=== PATIENT | female | born 1950 | race Caucasian/White ===

== ENCOUNTER 2022-01-29 23:58 | Inpatient (IN) | payer MEDICARE, SELFPAY ==
[2022-01-29 23:59] VITALS: BP 104/61; PULSE 97; RESP 15; TEMP 36.6; O2SAT 98
--- NOTE | 2022-01-30 00:18 | CT_ITS ---
STUDY: CT ABDOMEN AND PELVIS WITH CONTRAST REASON FOR EXAM: Female, 71 years old. diffuse pain, n/v RADIATION DOSAGE (If Supplied By Facility): CTDIvol = ( 16.25 ) mGy, DLP = ( 446.00 ) mGycm TECHNIQUE: Transaxial images were obtained from the dome of the diaphragm to the symphysis pubis without oral contrast. IV 100mL Isovue-300 was administered. Sagittal and coronal images were reconstructed. Individualized dose optimization techniques were used for this CT. COMPARISON: None. LIMITATIONS: None. LOWER CHEST: Normal. LIVER: The liver is diffusely hypoattenuating, suggestive of hepatic steatosis. GALLBLADDER/BILE DUCTS: Normal. PANCREAS: Normal. SPLEEN: Normal. ADRENAL GLANDS: Normal. KIDNEYS/URETERS/BLADDER: Cystic changes in the left kidney, too small to characterize. No hydroureteronephrosis or radiopaque nephrolithiasis.. RETROPERITONEUM/AORTA: Normal. BOWEL/MESENTERY: Severe wall thickening in the sigmoid colon with pericolonic inflammatory changes and sigmoid diverticulosis with pericolonic fluid and gas collection measuring 2.5 cm. APPENDIX: Identified and normal. PERITONEUM: Normal. REPRODUCTIVE ORGANS: Status post hysterectomy. BONES/SOFT TISSUES: No acute abnormality. OTHER: None. CT/Abdomen/Pelvis W IV Cont ONLY IMPRESSION: Severe sigmoid colonic wall thickening and pericolonic 2.5 cm fluid and gas collection, findings suspicious for perforated acute diverticulitis with peridiverticular abscess. Following clinical improvement colonoscopy is recommended to exclude underlying malignancy. Electronically Signed: Yamil Torres MD at 2:02 EDT ,
--- NOTE | 2022-01-30 00:19 | EDS_ITS ---
HPI HPI - GI History of Present Illness Chief Complaint: Abd Pain Informant: patient and family Limited: dementia Abdominal Pain/Flank Pain Onset: Weeks (2-3) Context: Gradual Onset Timing: Intermittent Quality: Aching Location: Diffuse Current Severity: Moderate Maximum Severity: Moderate Worsened by: Food Relieved by: Nothing Nausea/Vomiting/Emesis GI Symptom: Positive for Nausea and Vomiting Onset: Today Quality: Positive for Nonbilious; Negative for Blood streaks Severity: Moderate (Trouble keeping anything down) Diarrhea/Melena/Hematochezia GI Symptom: Negative for Diarrhea, Melena and Hematochezia Associated Symptoms Associated Symptoms: Negative for Dysuria, Frequency and Hematuria Narrative Narrative: Patient has been having weeks of intermittent abdominal discomfort after eating, today is more persistent and she has been vomiting all day and trouble keeping anything down, weak and lethargic, she has Alzheimer's dementia, so most of the history of recent events comes from family. The patient does state that she has abdominal discomfort right now, she states that hurts across her abdomen and points to the periumbilical level. Denies any back or chest discomfort or trouble breathing. No known falls or episodes of syncope recently. [facility] Medical History (Updated 01/30/22 @ 02:[address] Roberto Baird MD) Alzheimer's dementia Allergy/AdvReac Type Severity Reaction Status Date / Time No Known Allergies Allergy Verified 01/30/22 00:04 Surgical History (Updated 01/30/22 @ 02:[address] Roberto Baird MD) H/O: hysterectomy Social History Smoking Status: Never smoker ROS ROS ED Review of Systems ROS Unobtainable: due to mental condition Constitutional Constitutional ED: Denies chills or fever(s) Eyes Eyes: Denies change in vision or diplopia ENT ENT ED: Denies sore throat Cardiovascular Cardiovascular: Denies chest pain or palpitations Respiratory/Chest Respiratory/Chest: Denies cough or dyspnea Gastrointestinal Gastrointestinal: Reports abdominal pain, nausea and vomiting; Denies diarrhea Genitourinary Genitourinary ED: Denies dysuria or hematuria Musculoskeletal Musculoskeletal: Denies back pain or neck pain Integumentary Denies abscess or rash Neurologic Neurologic: Denies headache(s), paresthesias or weakness Psychiatric Psychiatric: Denies suicidal thoughts EXAM Physical Exam Const Vital Signs: 01/29/22 23:59 Temperature 97.9 F Temperature Source Temporal Pulse Rate 97 Respiratory Rate 15 Blood Pressure 104/61 Blood Pressure Mean 75 Pulse Ox 98 Oxygen Delivery Method Room Air Positive well nourished and well developed General Appearance ED: well developed and NAD HEENT Reports moist mucous membranes normocephalic and atraumatic Eyes PERRL and EOMs intact bilaterally Neck full ROM and supple Resp normal respiratory effort and clear to auscultation bilaterally Cardio regular rate, regular rhythm and no murmurs GI non-distended GI Narrative: Diffuse tenderness. No guarding or rebound tenderness. No palpable masses or pulsatile mass. Auscultation: hypoactive bowel sounds Palpation: soft Back/Spine no CVA tenderness General Back: other FROM Extremity normal to inspection General Extremety ED: Negative for edema, pulses abnormal or tenderness General Extremity: Negative for edema or pulses abnormal Neuro CN's II-XII intact bilaterally and no sensory deficits noted Neuro Narrative: Keenly alert, oriented to person and place but not time Sensorium / Orientation: awake and alert Motor Exam: strength 5/5 throughout Skin no rashes or lesions noted and no wounds MDM MDM MDM Narrative Medical decision making narrative: Labs were obtained and noted, we did start potassium replacement in the ED. CT of her abdomen/pelvis was obtained and the results were noted, severe sigmoid diverticulitis with an associated 2.5 mm diverticular abscess/perforation. Discussed with surgery Dr. Morales, he will see the patient early in the morning and recommends IV antibiotics and hospitalist admission at this time. Patient is doing well after morphine and prophylactic Zofran does not require any other medications right now. She does not have a surgical abdomen clinically. Lab Data Attestation: I reviewed the patient's lab results. Labs: Laboratory Results - last 24 hr 01/30/22 01/30/22 00:20 00:20 WBC 14.6 H RBC 4.83 Hgb 13.6 Hct 40.1 MCV 83.0 MCH 28.2 MCHC 33.9 RDW Std Deviation 45.2 H RDW Coeff of Jessica 14.9 H Plt Count 536 H MPV 9.2 Immature Gran % (Auto) 0.900 Neut % (Auto) 90.5 H Lymph % (Auto) 4.9 L [place] % (Auto) 3.6 Eos % (Auto) 0.0 Baso % (Auto) 0.1 Absolute Neuts (auto) 13.2 H Absolute Lymphs (auto) 0.72 L Nucleated RBC % 0 Sodium 139 Potassium 2.8 L Chloride 101 Carbon Dioxide 26.0 Anion Gap 12 BUN 15 Creatinine 0.95 Estim Creat Clear Calc 48.03 Est GFR (MDRD) Af Amer 75 Est GFR (MDRD) Non-Af 62 BUN/Creatinine Ratio 15.7 Glucose 173 H Calcium 8.3 L Total Bilirubin 0.50 AST 29 ALT 21 Alkaline Phosphatase 157 H Total Protein 6.2 L Albumin 1.8 L Globulin 4.4 H Albumin/Globulin Ratio 0.4 L Lipase 544 H Radiography Diagnostic Testing: Clinical Impression(s) from Imaging Studies Abdomen/Pelvis CT 01/30/22 00:18 IMPRESSION: Severe sigmoid colonic wall thickening and pericolonic 2.5 cm fluid and gas collection, findings suspicious for perforated acute diverticulitis with peridiverticular abscess. Following clinical improvement colonoscopy is recommended to exclude underlying malignancy. Electronically Signed: Yamil Torres MD at 2:02 EDT , Discharge Plan Dx/Rx/DC Orders Clinical Impression: Abscess of sigmoid colon due to diverticulitis, Hypokalemia due to excessive gastrointestinal loss of potassium Disposition Disposition: [facility]
[2022-01-30 00:26] LABS: Absolute Lymphocyte Count 0.72 X10^3/uL (0.83-4.51); Absolute Neutrophil Count 13.2 X10^3/uL (2.0-7.7); Basophil# 0.02 X10^3/uL; Basophil% 0.1 % (0-1); Hematocrit 40.1 % (37-47); Hemoglobin 13.6 g/dL (12.0-15.0); Lymphocyte # 0.72 X10^3/ul (0.83-4.51); Lymphocyte % 4.9 % (19-41); Mean Corp Hgb Conc 33.9 g/dL (32-36); Mean Corpuscular Hgb 28.2 pg (27.0-32.0); Mean Platelet Vol. 9.2 fl (6.2-12.0); Monocyte# 0.53 X10^3/uL; Monocyte% 3.6 % (0-10); NRBC Flagged by Analyzer 0 % (0-5); Neutrophil # 13.23 X10^3/uL (2.7-7.7); Neutrophil % 90.5 % (47-70); Platelet Count 536 K/mm3 (150-450); RBC Distribution Width CV 14.9 % (11.6-14.6); RBC Distribution Width SD 45.2 fl (35.1-43.9); Red Blood Count 4.83 M/mm3 (4.2-5.4); White Blood Count 14.6 K/mm3 (4.4-11.0)
[2022-01-30] MEDS: Morphine 2 MG/ML Syringe IV ×3 (00:32→22:35)
[2022-01-30] MEDS: Ondansetron 4 MG/2 ML Vial IV ×2 (00:33→13:21)
[2022-01-30] MEDS: 0.9% Normal Saline 1,000 ML 250 ML IV (00:39)
[2022-01-30 00:43] LABS: ALB/GLOB Ratio 0.4 RATIO (0.9-2.4); AST(SGOT) 29 U/L (15-37); Alanine Aminotransfer ALT/SGPT 21 U/L (13-56); Albumin, Serum 1.8 g/dL (3.2-5.0); Alkaline Phosphatase 157 U/L (45-117); Anion Gap 12 (5-15); BUN 15 mg/dL (7-18); BUN/Creat Ratio 15.7 RATIO (10-20); Calcium,Total 8.3 mg/dL (8.5-10.1); Chloride 101 mmol/L (98-107); Creatinine, Serum 0.95 mg/dL (0.55-1.02); EST Glomerular Filtration Rate 62 mL/min (>60); Est Glom Filt Rate - Afr Amer 75 mL/min (>60); Estimated Creatinine Clearance 48.03 ml/min; Globulin 4.4 g/dL (2.2-4.2); Glucose 173 mg/dL (74-106); Lipase 544 U/L (73-393); Potassium 2.8 mmol/L (3.5-5.1); Protein, Total 6.2 g/dL (6.4-8.2); Sodium Level 139 mmol/L (136-145)
[2022-01-30] MEDS: Potassium Chloride 10mEq/100mL 10 MEQ/100 ML IV.SOLN. 100 MEQ IV BOLUS ×8 (02:01→21:28)
--- NOTE | 2022-01-30 03:03 | PCM.HP.STD ---
HPI - General General Date of Admission: 01/30/22 HPI Narrative DAVIDA PINEDA, is a 71 F with a significant history of Alzheimer dementia who presents to the emergency department with abdominal pain. Her abdominal pain has been going on for about 2 months. However in the last 2 days or so her abdominal pain progressively worsened. Her abdominal pain is located in the lower part of her abdomen. Her abdominal pain is severe. Of note history is taken from patient daughters who were at the bedside. Patient has also dementia and is on able to provide characteristics such radiation, aggravation and ameliorating factors. Also in the past couple of days patient has been having nausea and vomiting. Reportedly she is unable to keep anything down. Reportedly patient has been weak. Patient has not had any fever. Reportedly patient has had some chills. [facility] Medical History Alzheimer's dementia Home Medications donepezil 10 mg DAILY 01/30/22 [History Last Taken Unknown] memantine 5 mg DAILY 01/30/22 [History Last Taken Unknown] paroxetine HCl 20 mg PO DAILY 01/30/22 [History Last Taken Unknown] potassium chloride 20 meq PO DAILY 01/30/22 [History Last Taken Unknown] quetiapine 25 mg DAILY 01/30/22 [History Last Taken Unknown] Allergy/AdvReac Type Severity Reaction Status Date / Time No Known Allergies Allergy Verified 01/30/22 00:04 Family History Other Diabetes Hypertension Lung cancer Surgical History H/O section H/O: hysterectomy Social History Smoking Status: Never smoker ROS ROS Narrative Constitutional: Patient has chills. Patient has anorexia.-Resting the patient has lost some weight in the past 2 months. Her family estimates that her weight loss may be about 10 pounds. Eyes: Denies blurry vision, change in eye color, change in vision, discharge from eye(s), double vision, erythema, eye pain, loss of vision or other HEENT: Denies abnormal hearing, dysphagia, ear pain, epistaxis, headache(s), hearing loss, nasal congestion, nasal discharge, post nasal drip, sinus pressure, sore throat or other Cardiovascular: Denies chest pain or palpitations. Denies dyspnea on exertion, orthopnea and paroxysmal nocturnal dyspnea Respiratory/Chest: Denies cough, excessive phlegm production, shortness of breath with exertion and wheezing Gastrointestinal: Reports abdominal pain, nausea and vomiting. Reports constipation. Genitourinary: Denies burning urination, difficulty urinating, dysuria, hematuria, nocturia, urinary frequency, urinary hesitancy, urinary incontinence, urinary urgency or other Musculoskeletal: Denies arthralgias, back pain, joint pain, joint stiffness, joint swelling, myalgias, neck pain or other Neurologic: Denies abnormal gait, abnormal speech, disequilibrium, dizziness, focal weakness, numbness, paresthesias, seizure-like activity, seizures, syncope, tingling, tremor(s) or other Psychiatric: Denies anxiety, depression, homicidal ideation, suicidal ideation or other Endocrinology: Denies change in body appearance, cold intolerance, excessive sweating, heat intolerance, polydipsia, polyuria or other Hematologic/Lymphatic: Denies anemia, easy bleeding, easy bruising, lymphadenopathy or other Integumentary: Denies rashes Allergic/Immunologic: Denies rhinitis, hives, eczema, or other . Vital Signs Vital Signs Vital Signs: 01/29/22 23:59 Temperature 97.9 F Temperature Source Temporal Pulse Rate 97 Respiratory Rate 15 Blood Pressure 104/61 Blood Pressure Mean 75 Pulse Ox 98 Oxygen Delivery Method Room Air Weight Weight: 54.431 kg Body Mass Index (BMI) 20.0 Physical Exam Narrative Physical exam: General: Well-nourished, well-developed. Head: Normocephalic, atraumatic, no tenderness Eyes: Vision is grossly intact. EOMI ENT, no trauma, moist mucous membranes, no rhinorrhea Neck: Nontender, full range of motion, no spinal tenderness, deformities, step-off CVS: Regular rate and rhythm. S1-S2 present. No murmur, gallop or rub. Respiratory : clear to auscultation bilaterally, chest wall nontender, no wheezing Abdomen: Soft, tender, nondistended, normal bowel sounds, no masses : Deferred Back: Nontender, no CVA tenderness, no midline spinal tenderness, deformities, step-offs Extremities: Nontender full range of motion, no trauma Skin: Normal color, no trauma, abrasions Neuro: Alert, confused; cranial nerves II through XII grossly intact. Psychiatry: Normal mood. Normal affect. Not depressed. Not anxious. Results Lab / Micro Data Result Diagrams: 01/30/22 00:20 01/30/22 00:20 Labs: Laboratory Results - last 24 hr 01/30/22 00:20: WBC 14.6 H, RBC 4.83, Hgb 13.6, Hct 40.1, MCV 83.0, MCH 28.2, MCHC 33.9, RDW Std Deviation 45.2 H, RDW Coeff of Jessica 14.9 H, Plt Count 536 H, MPV 9.2, Immature Gran % (Auto) 0.900, Neut % (Auto) 90.5 H, Lymph % (Auto) 4.9 L, [place] % (Auto) 3.6, Eos % (Auto) 0.0, Baso % (Auto) 0.1, Absolute Neuts (auto) 13.2 H, Absolute Lymphs (auto) 0.72 L, Nucleated RBC % 0 01/30/22 00:20: Sodium 139, Potassium 2.8 L, Chloride 101, Carbon Dioxide 26.0, Anion Gap 12, BUN 15, Creatinine 0.95, Estim Creat Clear Calc 48.03, Est GFR (MDRD) Af Amer 75, Est GFR (MDRD) Non-Af 62, BUN/Creatinine Ratio 15.7, Glucose 173 H, Calcium 8.3 L, Total Bilirubin 0.50, AST 29, ALT 21, Alkaline Phosphatase 157 H, Total Protein 6.2 L, Albumin 1.8 L, Globulin 4.4 H, Albumin/Globulin Ratio 0.4 L, Lipase 544 H Radiology Impression Abdomen/Pelvis CT 01/30/22 00:18 IMPRESSION: Severe sigmoid colonic wall thickening and pericolonic 2.5 cm fluid and gas collection, findings suspicious for perforated acute diverticulitis with peridiverticular abscess. Following clinical improvement colonoscopy is recommended to exclude underlying malignancy. Electronically Signed: Yamil Torres MD at 2:02 EDT , Assessment & Plan Assessment/Plan (1) Abscess of sigmoid colon due to diverticulitis: (2) Hypokalemia due to excessive gastrointestinal loss of potassium: PLAN: Abscess and perforation of sigmoid colon due to diverticulitis Abdomen and pelvis CT was visualized and independently interpreted, and agree with allege interpretation. CBC reviewed showed white count of 14.6 with neutrophilia and lymphopenia. Also with thrombocytosis. Trend CBC. CMP showed elevated alkaline phosphatase; low protein; low albumin; increased globulin. Will trend CMP. Cipro IV and metronidazole IV was started at the emergency department and will be continued. Emergency plan doctor discussed the case with general surgery on-call who will follow. Per ED doc general surgery does not feel the patient will need any surgical intervention. Antibiotics were recommended. General surgery consult. We will keep patient n.p.o. Supportive treatment with IV fluids; IV morphine and IV antiemetics. Normal saline with potassium ordered. Hypokalemia Potassium on presentation was 2.8. Likely secondary to gastrointestinal loss. Received 10 milliequivalents of potassium IV ordered at the emergency department. 30 mEq of IV potassium ordered. Normal saline with potassium limitation ordered. Check magnesium. Trend K and CMP DVT prophylaxis Patient is not a candidate of chemical thromboprophylaxis secondary to being a surgical candidate. Likely with antibiotics patient will get better. SCD ordered. Charges/Coding Visit Charges Inpatient E&M: 99001 Init Hosp L3
[2022-01-30] MEDS: metroNIDAZOLE 500 MG/100 ML BAG 100 MG IV ×3 (03:24→22:29)
[2022-01-30 03:26] VITALS: RESP 17; TEMP 36.6; O2SAT 99
[2022-01-30 03:27] VITALS: BP 113/68; PULSE 78; RESP 16; TEMP 36.6; O2SAT 97
[2022-01-30 03:34] LABS: Magnesium 1.8 mg/dL (1.6-2.6)
[2022-01-30 03:50] VITALS: BP 139/65; PULSE 94; RESP 16; TEMP 36.7; O2SAT 100
[2022-01-30 03:59] VITALS: BMI 16.9
[2022-01-30] MEDS: Ciprofloxacin 400 MG/200 ML BAG 200 MG IV ×2 (05:26→21:21)
[2022-01-30] MEDS: 0.9% Saline Lock 10 ML Syringe IV ×4 (07:30→21:26)
--- NOTE | 2022-01-30 07:37 | CON.PCM.SX_ITS ---
Assessment & Plan Assessment/Plan (1) Abscess of sigmoid colon due to diverticulitis: PLAN: This is a 71-year-old female with advanced Alzheimer's dementia who presents with complicated diverticulitis. She appears to have at least a 2.5 cm pericolonic abscess located rather deeply in the pelvis. Based on size and di fficult location, I do not think this is amenable to percutaneous drainage. At rest, patient seems rather comfortable and she is only mildly tender with exam. Taken together, I recommend proceeding with conservative measures of bowel rest and IV antibiotic therapy initially. No family is present in the room this morning to discuss this care plan, but I have informed nursing of my desire to speak with family to convey this clinical impression and take any questions. HPI Consult Data Date of Consult: 01/30/22 HPI Narrative HPI Narrative: DAVIDA PINEDA, is a 71 F, with history of Alzheimer's dementia, who presents to [facility] with over a week of abdominal discomfort. ER work-up was notable for elevated WBC at 14.6, thrombocytosis, and significant hypokalemia. CT imaging that demonstrated complicated diverticulitis with severe sigmoid colon thickening and a 2.5 cm fluid and gas collection in the pelvis. On exam, patient states that her abdominal pain is better, but she is not able to provide much of a history secondary to her neurologic diagnoses. [facility] Medical History (Updated 01/30/22 @ 04:13 by Jazmin Gonzalez) Alzheimer's dementia Anxiety Depression GERD (gastroesophageal reflux disease) Hearing loss, left Hearing loss, right Migraines Non-smoker Sleep apnea Home Medications memantine 5 mg DAILY 01/30/22 [History Last Taken Unknown] paroxetine HCl 20 mg PO DAILY 01/30/22 [History Last Taken Unknown] potassium chloride 20 meq PO DAILY 01/30/22 [History Last Taken Unknown] quetiapine 12.5 mg BID 01/30/22 [History Last Taken Unknown] Allergy/AdvReac Type Severity Reaction Status Date / Time No Known Allergies Allergy Verified 01/30/22 00:04 Family History Other Diabetes Hypertension Lung cancer Surgical History H/O section H/O: hysterectomy Social History Smoking Status: Never smoker Physical Exam Const alert and no apparent distress General Appearance: cooperative GI GI Narrative: Nondistended, soft, mildly tender to palpation in the left upper quadrant right lower quadrant, and left lower quadrant. Lab / Micro Data Result Diagrams: 01/30/22 00:20 01/30/22 00:20 Labs: Laboratory Results - last 24 hr 01/30/22 00:20: WBC 14.6 H, RBC 4.83, Hgb 13.6, Hct 40.1, MCV 83.0, MCH 28.2, MCHC 33.9, RDW Std Deviation 45.2 H, RDW Coeff of Jessica 14.9 H, Plt Count 536 H, MPV 9.2, Immature Gran % (Auto) 0.900, Neut % (Auto) 90.5 H, Lymph % (Auto) 4.9 L, [place] % (Auto) 3.6, Eos % (Auto) 0.0, Baso % (Auto) 0.1, Absolute Neuts (auto) 13.2 H, Absolute Lymphs (auto) 0.72 L, Nucleated RBC % 0 01/30/22 00:20: Sodium 139, Potassium 2.8 L, Chloride 101, Carbon Dioxide 26.0, Anion Gap 12, BUN 15, Creatinine 0.95, Estim Creat Clear Calc 48.03, Est GFR (MDRD) Af Amer 75, Est GFR (MDRD) Non-Af 62, BUN/Creatinine Ratio 15.7, Glucose 173 H, Calcium 8.3 L, Total Bilirubin 0.50, AST 29, ALT 21, Alkaline Phosphatase 157 H, Total Protein 6.2 L, Albumin 1.8 L, Globulin 4.4 H, Albumin/Globulin Ratio 0.4 L, Lipase 544 H 01/30/22 00:20: Magnesium 1.8 Radiology Impression Abdomen/Pelvis CT 01/30/22 00:18 IMPRESSION: Severe sigmoid colonic wall thickening and pericolonic 2.5 cm fluid and gas collection, findings suspicious for perforated acute diverticulitis with peridiverticular abscess. Following clinical improvement colonoscopy is recommended to exclude underlying malignancy. Electronically Signed: Yamil Torres MD at 2:02 EDT , Charges/Coding Visit Charges Inpatient E&M: 80355 Init Hosp L2
[2022-01-30 09:08] VITALS: BP 104/77; PULSE 93; RESP 18; TEMP 36.1; O2SAT 100
[2022-01-30] MEDS: KCL 20MEQ in 0.9% NS 20 MEQ/1,000 ML IV.SOLN. 100 MEQ IV ×2 (10:16→21:10)
[2022-01-30 10:59] LABS: Potassium 3.1 mmol/L (3.5-5.1)
--- NOTE | 2022-01-30 11:05 | CASEMGMT ---
SHAYLA RIVERS assessment: Face to Face with patient for initial transition planning/care coordination assessment. SHAYLA RIVERS introduced self and role at [facility], pt voices understanding and consents to assessment. Pt is sitting up in chair in no distress on room air. Pt is A/Ox1, self, at this time. Pt has dementia and daughter, Cristina, is at bedside and answers all questions for pt. Care providers, pharmacy, and demographics verified. Presentation: Family concerned that pt has decreased intake, N/V, abd pain-Hx alzheimers Admitting dx: Acute diverticulitis PCP: Jese Specialists: None Preferred Pharmacy: [facility] Benefit: [facility] Living Will/HPOA: Pt has LW/HPOA and daughter is aware that they are not on file at [facility]. Pt's daughter, Landon Kumar, is HPOA. LNOK: Willam Escamilla, ; Landon Kumar, daughter/HPOA; Cristina Gracielairineo, daughter Living Arrangements: Pt lives with and daughter, Cristina, in 1 story home with couple steps in and daughter states she assists pt with all care. Transportation: Pt's family drives and states no transportation concerns. DME/HHC: Pt has no current DME or need for any further DME. Daughter states no hx of HHC or SNF. Daughter states no concerns with pt going home at time of discharge. Pt is retired. Pt does not smoke cigarettes or drink ETOH. Daughter voices no further concerns/needs. CM to follow for any further discharge planning/needs. Advised daughter to ask for CM if any further questions/concerns/needs arise, voices understanding. Pt goal: Home Plan[place] SHAYLA RIVERS
--- NOTE | 2022-01-30 11:46 | PN.HOSP_ITS ---
Documented by User: Holly Drew GALVANIZING POT RUNNER, GALVANIZING POT RUNNER-C 01/30/22 11:51 Subjective Subjective Patient seen and examined. Daughter at bedside. Denies symptoms or complaints. Daughter at bedside confirms patient has not complained of any abdominal pain, fever or chills. Objective Data Objective Data Vital Signs: Vital Signs Temp Pulse Resp BP Pulse Ox 97 F L 93 18 104/77 100 01/30/22 09:08 01/30/22 09:08 01/30/22 09:08 01/30/22 09:08 01/30/22 09:08 Oxygen Delivery Method Room Air Weight: 102 lb 1.184 oz Body Mass Index (BMI) 16.9 Intake & Output: Intake and Output for Last 24 Hours 01/28/22 01/29/22 01/30/22 23:59 23:59 23:59 Intake Total 1723.75 / 1723.75 Output Total 0 / 0 Balance 1723.75 / 1723.75 Lab / Micro Data Result Diagrams: 01/30/22 00:20 01/30/22 10:17 Labs: Laboratory Results - last 24 hr 01/30/22 00:20: WBC 14.6 H, RBC 4.83, Hgb 13.6, Hct 40.1, MCV 83.0, MCH 28.2, MCHC 33.9, RDW Std Deviation 45.2 H, RDW Coeff of Jessica 14.9 H, Plt Count 536 H, MPV 9.2, Immature Gran % (Auto) 0.900, Neut % (Auto) 90.5 H, Lymph % (Auto) 4.9 L, [place] % (Auto) 3.6, Eos % (Auto) 0.0, Baso % (Auto) 0.1, Absolute Neuts (auto) 13.2 H, Absolute Lymphs (auto) 0.72 L, Nucleated RBC % 0 01/30/22 00:20: Sodium 139, Potassium 2.8 L, Chloride 101, Carbon Dioxide 26.0, Anion Gap 12, BUN 15, Creatinine 0.95, Estim Creat Clear Calc 48.03, Est GFR (MDRD) Af Amer 75, Est GFR (MDRD) Non-Af 62, BUN/Creatinine Ratio 15.7, Glucose 173 H, Calcium 8.3 L, Total Bilirubin 0.50, AST 29, ALT 21, Alkaline Phosphatase 157 H, Total Protein 6.2 L, Albumin 1.8 L, Globulin 4.4 H, Albumin/Globulin Ratio 0.4 L, Lipase 544 H 01/30/22 00:20: Magnesium 1.8 01/30/22 10:17: Potassium 3.1 L Radiography Diagnostic Testing: Radiology Impression Abdomen/Pelvis CT 01/30/22 00:18 IMPRESSION: Severe sigmoid colonic wall thickening and pericolonic 2.5 cm fluid and gas collection, findings suspicious for perforated acute diverticulitis with peridiverticular abscess. Following clinical improvement colonoscopy is recommended to exclude underlying malignancy. Electronically Signed: Yamil Torres MD at 2:02 EDT , Physical Exam Const alert Constitutional Narrative: Demented at baseline, unable to follow conversation or answer questions appropriately HEENT normocephalic and moist oral mucous membranes Eyes PERRL, EOMs intact bilaterally and conjunctivae normal Neck no lymphadenopathy Resp normal respiratory effort and clear to auscultation bilaterally Cardio regular rate, regular rhythm and no murmurs Peripheral Pulses: pulses 2+ throughout GI normal to inspection, nondistended, normoactive bowel sounds, non-tender and non-distended Extremity normal to inspection Skin no rashes or lesions noted Lesions: no lesions Rashes: no rashes Trauma: no lacerations or abrasions Neuro CN's II-XII intact bilaterally, no focal motor deficits, no sensory deficits noted and deep tendon reflexes 2+ bilaterally Psych mental status grossly normal and affect normal Assessment & Plan Assessment/Plan (1) Abscess of sigmoid colon due to diverticulitis: PLAN: 1. Abscess of sigmoid colon due to diverticulitis-surgery following. Patient noted to have 2.5 cm pericolonic abscess. Due to size and difficult location, not amenable to percutaneous drainage. Plan for conservative management with IV antibiotics and bowel rest. As needed regimen for fever, pain. IV fluids. NPO. Continue IV Flagyl and IV Cipro. 2. Hypokalemia-replace per protocol. Trend BMP. 3. Alzheimer's dementia/depression/anxiety-unknown behavioral disturbance history. On memantine, paroxetine, quetiapine. 4. FUNMILAYO-on CPAP. DVT prophylaxis-SCDs This patient was seen by Holly Drew NP-C under the supervision of Dr. Starkey. Documented by User: Dr. Yessica Starkey MD 01/30/22 14:56 Objective Data Lab / Micro Data Result Diagrams: 01/30/22 00:20 01/30/22 10:17 Charges/Coding Addendum Addendum: This patient was seen in conjunction with Holly Drew NP. I have independently interviewed and examined the patient and reviewed pertinent historical, laboratory, and other data. I have reviewed her note and concur with her documentation Patient was seen and examined. No acute events overnight. Stated that her pain is fairly stable Physical Exam: Gen: Comfortable, not pale, not jaundiced CVS:HS I +II, regular, no murmurs RESP: Diminished at lung bases GI: BS present and normal, soft, nontender, no palpable organs EXT:No edema ASSESSMENT: 1. Acute sigmoid colon abscess secondary to diverticulitis 2. Hypokalemia 3. Alzheimer's dementia 4. Anxiety/depression 5. FUNMILAYO on CPAP Plan: Continue on IV antibiotics Replace potassium Repeat blood work Time spent coordinating patient's care, discussing with subspecialty and nursin minutes Visit Charges Inpatient E&M: 54604 Subs Hosp L2
[2022-01-30 15:09] VITALS: BP 114/64; PULSE 95; RESP 20; TEMP 36.7; O2SAT 100
--- NOTE | 2022-01-30 16:00 | CHAPLAIN ---
Type of Pastoral Visit _x__ Initial Visit ___ Follow-up Visit ___ On-call Visit ___ General Patient Visit ___ Spiritual Assessment ___ Family Conference ___ Bereavement ___ Rapid Response ___ Code Blue ___ Other (describe below) Pastoral Care Referral From _x__ Patient _x__ Family ___ Nurse ___ Physician ___ Shell Sieve Operator ___ Program Engineer ___ Other (describe below) Sacrament/Intervention _x__ Active listening ___ Anointing ___ Pentecostal ___ Bereavement ___ Communion ___ Lauren exploration ___ ___ Life review _x__ Prayer ___ Reconciliation ___ Sacrament of Sick _x__ Supportive presence ___ Wedding ___ Other (describe below) Pastoral Comments patient pleasant and welcoming; daughter is at bedside; asking questions of the patient it became evident that the pt had some difficulty understanding or answering; daughter was helpful to assist in giving more complete information; pt cannot express why she is in hospital but acknowledged that it takes time; pt assured that staff is her for her comfort and help; asked pt if a prayer would be okay and she was clear to say yes; daughter agreed that pt would like prayer support; no other needs noted by either at this time
--- NOTE | 2022-01-30 18:39 | NURSING ---
Reviewed charting with Magaly Sales RN
[2022-01-30 21:28] VITALS: BP 135/77; PULSE 92; RESP 18; TEMP 36.7; O2SAT 100
[2022-01-31 03:11] VITALS: BP 140/88; PULSE 102; RESP 18; TEMP 36.6; O2SAT 99
[2022-01-31] MEDS: KCL 20MEQ in 0.9% NS 20 MEQ/1,000 ML IV.SOLN. 100 MEQ IV ×2 (05:47→16:34)
[2022-01-31] MEDS: metroNIDAZOLE 500 MG/100 ML BAG 100 MG IV ×3 (05:48→21:37)
--- NOTE | 2022-01-31 05:54 | NURSING ---
phone call recieved. Update provided to pt daughter Cristina. pt resting in bed at this time, will continue to monitor.
[2022-01-31 06:03] LABS: Absolute Lymphocyte Count 1.22 X10^3/uL (0.83-4.51); Absolute Neutrophil Count 9.4 X10^3/uL (2.0-7.7); Basophil# 0.02 X10^3/uL; Basophil% 0.2 % (0-1); Eosinophil# 0.14 X10^3/uL; Eosinophils% 1.2 % (0-5); Hematocrit 30.2 % (37-47); Hemoglobin 9.9 g/dL (12.0-15.0); Lymphocyte # 1.22 X10^3/ul (0.83-4.51); Lymphocyte % 10.4 % (19-41); Mean Corp Hgb Conc 32.8 g/dL (32-36); Mean Corpuscular Hgb 28.2 pg (27.0-32.0); Mean Platelet Vol. 9.1 fl (6.2-12.0); Monocyte# 0.74 X10^3/uL; Monocyte% 6.3 % (0-10); NRBC Flagged by Analyzer 0 % (0-5); Neutrophil # 9.44 X10^3/uL (2.7-7.7); Neutrophil % 80.2 % (47-70); Platelet Count 307 K/mm3 (150-450); RBC Distribution Width SD 50.4 fl (35.1-43.9); Red Blood Count 3.51 M/mm3 (4.2-5.4); White Blood Count 11.8 K/mm3 (4.4-11.0)
[2022-01-31 06:40] LABS: ALB/GLOB Ratio 0.4 RATIO (0.9-2.4); AST(SGOT) 23 U/L (15-37); Alanine Aminotransfer ALT/SGPT 18 U/L (13-56); Albumin, Serum 1.3 g/dL (3.2-5.0); Alkaline Phosphatase 101 U/L (45-117); Anion Gap 7 (5-15); BUN 4 mg/dL (7-18); BUN/Creat Ratio 13.5 RATIO (10-20); Calcium,Total 7.2 mg/dL (8.5-10.1); Chloride 115 mmol/L (98-107); EST Glomerular Filtration Rate 237 mL/min (>60); Est Glom Filt Rate - Afr Amer 287 mL/min (>60); Estimated Creatinine Clearance 38.81 ml/min; Globulin 3.1 g/dL (2.2-4.2); Glucose 85 mg/dL (74-106); Potassium 3.5 mmol/L (3.5-5.1); Protein, Total 4.4 g/dL (6.4-8.2); Sodium Level 141 mmol/L (136-145)
--- NOTE | 2022-01-31 08:30 | PN.SURG_ITS ---
Subjective Subjective Patient was seen and examined during AM rounds. She was found resting on the bed in the chair. She states that her abdominal pain is better. She states that she now is hungry. Objective Data Objective Data Vital Signs: Vital Signs Temp Pulse Resp BP Pulse Ox 97.8 F 102 H 18 140/88 H 99 01/31/22 03:11 01/31/22 03:11 01/31/22 03:11 01/31/22 03:11 01/31/22 03:11 Oxygen Delivery Method Room Air Weight: 102 lb 1.184 oz Body Mass Index (BMI) 16.9 Intake & Output: Intake and Output for Last 24 Hours 01/29/22 01/30/22 01/31/22 23:59 23:59 23:59 Intake Total 3523.75 / 3523.75 861.67 / 861.67 Output Total 0 / 0 Balance 3523.75 / 3523.75 861.67 / 861.67 Medical Nutrition Assessment Dietitian: Malnutrition Criteria Met Start: 01/30/22 12:15 Freq: Status: Active Protocol: Document 01/30/22 12:15 AG (Rec: 01/30/22 12:15 [id number]) Nutrition Malnutrition Evidence of Malnutrition Exists Yes Malnutrition (severe): Acute Illness/Injury Evidenced By Suboptimal Energy Intake ( Severe),Weight Loss (Severe) Clinical Problem Acute Disease or Injury Related Malnutrition Etiology severe, acute malnutrition related to GI dysfunction due to inadequate oral intake Signs/Symptoms as evidenced by unintentional wt loss of 27.9#/21% x 2 months, estimated PO intake meeting <50% of estimated energy needs > 2 months, BMI 17.0 Status Active Problem Recommendation Dietitian Recommendations/Changes Recommend advance diet as tolerated to transitional; offer ensure clear 120mL 4x/ day w/ medpass as diet is advanced although family is uncertain if pt will be accepting; consider milkshake/ fortifying foods w/ beneprotein if unaccepting of supplements given severe malnutrition; close monitoring of electrolytes when diet advanced given concerns for refeeding syndrome Lab / Micro Data Result Diagrams: 01/31/22 05:27 01/31/22 05:27 Labs: Laboratory Results - last 24 hr 01/30/22 10:17: Potassium 3.1 L 01/30/22 14:57: Potassium 3.0 L 01/31/22 05:27: WBC 11.8 H, RBC 3.51 L, Hgb 9.9 L, Hct 30.2 L, MCV 86.0, MCH 28.2, MCHC 32.8, RDW Std Deviation 50.4 H, RDW Coeff of Jessica 16.0 H, Plt Count 307, MPV 9.1, Immature Gran % (Auto) 1.700 H, Neut % (Auto) 80.2 H, Lymph % (Auto) 10.4 L, [place] % (Auto) 6.3, Eos % (Auto) 1.2, Baso % (Auto) 0.2, Absolute Neuts (auto) 9.4 H, Absolute Lymphs (auto) 1.22, Nucleated RBC % 0 01/31/22 05:27: Sodium 141, Potassium 3.5, Chloride 115 H, Carbon Dioxide 19.0 L , Anion Gap 7, BUN 4 L, Creatinine 0.30 L, Estim Creat Clear Calc 38.81, Est GFR (MDRD) Af Amer 287, Est GFR (MDRD) Non-Af 237, BUN/Creatinine Ratio 13.5, Glucose 85, Calcium 7.2 L, Total Bilirubin 0.40, AST 23, ALT 18, Alkaline Phosphatase 101, Total Protein 4.4 L, Albumin 1.3 L, Globulin 3.1, Albumin/Globulin Ratio 0.4 L Physical Exam Const no apparent distress Resp normal respiratory effort GI GI Narrative: Nondistended, soft, tender to palpation across the left upper and lower quadrants. This seems somewhat improved from yesterday Assessment & Plan Assessment/Plan (1) Abscess of sigmoid colon due to diverticulitis: PLAN: This is a 71-year-old female with advanced Alzheimer's dementia who presents with complicated diverticulitis. She appears to have at least a 2.5 cm pericolonic abscess located rather deeply in the pelvis. Based on size and difficult location, I do not think this is amenable to percutaneous drainage. Patient remains comfortable at rest and expresses an appetite. Exam is somewhat improved as well. Therefore, I find it reasonable to begin a diet with clear liquids and Ensure clears. Conversation was held between our team and patient's family. There is an understanding that the family does not wish to pursue any surgical measures with Ms. Escamilla's care Charges/Coding Visit Charges Inpatient E&M: 05533 Subs Hosp L2
[2022-01-31 08:37] VITALS: BP 122/67; PULSE 91; RESP 16; TEMP 36.8; O2SAT 98
[2022-01-31] MEDS: Ciprofloxacin 400 MG/200 ML BAG 200 MG IV ×2 (09:51→23:00)
[2022-01-31] MEDS: Ensure Clear 120 ML Liquid PO (11:36)
--- NOTE | 2022-01-31 11:52 | PCM.PN.HOSP ---
Documented by User: Robert DUBON 01/31/22 12:13 Subjective Subjective Patient is a 71-year-old female comfortably resting in a chair, alert and orient x3. Patient denies development of any new symptoms overnight. Does not appear in acute distress. Objective Data Objective Data Vital Signs: Vital Signs Temp Pulse Resp BP Pulse Ox 98.3 F 91 16 122/67 H 98 01/31/22 08:37 01/31/22 08:37 01/31/22 08:37 01/31/22 08:37 01/31/22 08:37 Oxygen Delivery Method Room Air Weight: 102 lb 1.184 oz Body Mass Index (BMI) 16.9 Intake & Output: Intake and Output for Last 24 Hours 01/29/22 01/30/22 01/31/22 23:59 23:59 23:59 Intake Total 3523.75 / 3523.75 1178.67 / 1178.67 Output Total 0 / 0 Balance 3523.75 / 3523.75 1178.67 / 1178.67 Medical Nutrition Assessment Dietitian: Malnutrition Criteria Met Start: 01/30/22 12:15 Freq: Status: Active Protocol: Document 01/30/22 12:15 AG (Rec: 01/30/22 12:15 AG [id number]) Nutrition Malnutrition Evidence of Malnutrition Exists Yes Malnutrition (severe): Acute Illness/Injury Evidenced By Suboptimal Energy Intake ( Severe),Weight Loss (Severe) Clinical Problem Acute Disease or Injury Related Malnutrition Etiology severe, acute malnutrition related to GI dysfunction due to inadequate oral intake Signs/Symptoms as evidenced by unintentional wt loss of 27.9#/21% x 2 months, estimated PO intake meeting <50% of estimated energy needs > 2 months, BMI 17.0 Status Active Problem Recommendation Dietitian Recommendations/Changes Recommend advance diet as tolerated to transitional; offer ensure clear 120mL 4x/ day w/ medpass as diet is advanced although family is uncertain if pt will be accepting; consider milkshake/ fortifying foods w/ beneprotein if unaccepting of supplements given severe malnutrition; close monitoring of electrolytes when diet advanced given concerns for refeeding syndrome Lab / Micro Data Result Diagrams: 01/31/22 05:27 01/31/22 05:27 Labs: Laboratory Results - last 24 hr 01/30/22 14:57: Potassium 3.0 L 01/31/22 05:27: WBC 11.8 H, RBC 3.51 L, Hgb 9.9 L, Hct 30.2 L, MCV 86.0, MCH 28.2, MCHC 32.8, RDW Std Deviation 50.4 H, RDW Coeff of Jessica 16.0 H, Plt Count 307, MPV 9.1, Immature Gran % (Auto) 1.700 H, Neut % (Auto) 80.2 H, Lymph % (Auto) 10.4 L, [place] % (Auto) 6.3, Eos % (Auto) 1.2, Baso % (Auto) 0.2, Absolute Neuts (auto) 9.4 H, Absolute Lymphs (auto) 1.22, Nucleated RBC % 0 01/31/22 05:27: Sodium 141, Potassium 3.5, Chloride 115 H, Carbon Dioxide 19.0 L, Anion Gap 7, BUN 4 L, Creatinine 0.30 L, Estim Creat Clear Calc 38.81, Est GFR (MDRD) Af Amer 287, Est GFR (MDRD) Non-Af 237, BUN/Creatinine Ratio 13.5, Glucose 85, Calcium 7.2 L, Total Bilirubin 0.40, AST 23, ALT 18, Alkaline Phosphatase 101, Total Protein 4.4 L, Albumin 1.3 L, Globulin 3.1, Albumin/Globulin Ratio 0.4 L Physical Exam Const alert, oriented x3 and no apparent distress HEENT head/scalp atraumatic and moist oral mucous membranes Head and Scalp: normocephalic Eyes PERRL, EOMs intact bilaterally and conjunctivae normal Neck no lymphadenopathy, supple and no JVD Resp normal respiratory effort, no retractions and no use of accessory muscles Cardio regular rate, regular rhythm and no JVD GI normal to inspection, nondistended, normoactive bowel sounds and soft to palpation Extremity normal to inspection, full ROM and no clubbing, cyanosis or edema Skin no rashes or lesions noted Neuro CN's II-XII intact bilaterally Psych affect normal Assessment & Plan Assessment/Plan (1) Abscess of sigmoid colon due to diverticulitis: PLAN: Day 1 Discharge planning: Current plan is for patient to discharge home when medically ready. 1) diverticulitis of the sigmoid colon with abscess General surgery following, no plans for invasive management at this time, will continue IV fluids with Cipro and Flagyl. Possible discharge on 02/01 or 02/02. 2) hypokalemia Resolved, potassium currently 3.5 we will continue to monitor BMP.\ 3) Alzheimer's dementia Continue memantine. 4) depression/anxiety Continue paroxetine and quetiapine. 5) FUNMILAYO Continue CPAP. DVT prophylaxis - SCDs Patient seen by Robert Best PA-C, under the supervision of Dr. Starkey. Time spent on patient care: 10 minutes. Documented by User: Dr. Yessica Starkey MD 01/31/22 12:50 Objective Data Lab / Micro Data Result Diagrams: 01/31/22 05:27 01/31/22 05:27 Charges/Coding Addendum Addendum: This patient was seen in conjunction with JAGDISH García. I have independently interviewed and examined the patient and reviewed pertinent historical, laboratory, and other data. I have reviewed her note and concur with her documentation Patient was seen and examined. Her daughter was at the bedside. No acute events overnight. She stated that her pain is fairly stable. She has pain on moving her bowels. Physical Exam: Gen: Comfortable, not pale, not jaundiced CVS:HS I +II, regular, no murmurs RESP: Diminished at lung bases GI: BS present and normal, soft, nontender, no palpable organs EXT:No edema ASSESSMENT: 1. Acute sigmoid colon abscess secondary to diverticulitis 2. Hypokalemia, resolved 3. Alzheimer's dementia 4. Anxiety/depression 5. FUNMILAYO on CPAP 6. Severe protein calore malnutrition, due to inadequate p.o. intake and unintentional weight loss Plan: Advance diet to transitional diet, Supplements per nutritions Continue on IV antibiotics Repeat blood work Time spent coordinating patient's care, discussing with subspecialty and nursin minutes Visit Charges Inpatient E&M: 53411 Subs Hosp L2
[2022-01-31 12:44] VITALS: BP 126/80; PULSE 85; RESP 16; TEMP 36.6; O2SAT 98
[2022-01-31] MEDS: Ondansetron 4 MG/2 ML Vial IV (12:49)
[2022-01-31] MEDS: Morphine 2 MG/ML Syringe IV ×3 (12:49→23:49)
[2022-01-31 16:24] VITALS: BP 110/66; PULSE 97; RESP 16; TEMP 36.7; O2SAT 99
[2022-01-31 21:41] VITALS: BP 134/75; PULSE 98; RESP 18; TEMP 36.3; O2SAT 99
--- NOTE | 2022-01-31 23:17 | NURSING ---
pt daughter requests that SCDs be removed from pt legs. Pt daughter feel that this is making pt feel anxious. Bed alarm corrections officer light within reach. daughter remains at bedside. will monitor.
[2022-02-01 03:04] VITALS: BP 125/69; PULSE 87; RESP 18; TEMP 36.7; O2SAT 98
[2022-02-01] MEDS: metroNIDAZOLE 500 MG/100 ML BAG 100 MG IV ×3 (04:50→22:11)
[2022-02-01 04:51] LABS: Absolute Lymphocyte Count 0.86 X10^3/uL (0.83-4.51); Absolute Neutrophil Count 10.1 X10^3/uL (2.0-7.7); Basophil# 0.04 X10^3/uL; Basophil% 0.3 % (0-1); Eosinophil# 0.21 X10^3/uL; Eosinophils% 1.7 % (0-5); Hematocrit 31.5 % (37-47); Hemoglobin 10.4 g/dL (12.0-15.0); Lymphocyte # 0.86 X10^3/ul (0.83-4.51); Mean Corpuscular Hgb 28.3 pg (27.0-32.0); Mean Corpuscular Volume 85.8 fL (81-99); Mean Platelet Vol. 8.9 fl (6.2-12.0); Monocyte# 0.55 X10^3/uL; Monocyte% 4.5 % (0-10); NRBC Flagged by Analyzer 0 % (0-5); Neutrophil # 10.13 X10^3/uL (2.7-7.7); Neutrophil % 82.9 % (47-70); Platelet Count 299 K/mm3 (150-450); RBC Distribution Width CV 15.9 % (11.6-14.6); RBC Distribution Width SD 50.1 fl (35.1-43.9); Red Blood Count 3.67 M/mm3 (4.2-5.4); White Blood Count 12.2 K/mm3 (4.4-11.0)
[2022-02-01 05:19] LABS: Anion Gap 6 (5-15); BUN 2 mg/dL (7-18); BUN/Creat Ratio 5.1 RATIO (10-20); Calcium,Total 7.1 mg/dL (8.5-10.1); Chloride 108 mmol/L (98-107); Creatinine, Serum 0.39 mg/dL (0.55-1.02); EST Glomerular Filtration Rate 173 mL/min (>60); Est Glom Filt Rate - Afr Amer 210 mL/min (>60); Estimated Creatinine Clearance 38.81 ml/min; Glucose 104 mg/dL (74-106); Potassium 2.9 mmol/L (3.5-5.1); Sodium Level 136 mmol/L (136-145)
[2022-02-01] MEDS: KCL 20MEQ in 0.9% NS 20 MEQ/1,000 ML IV.SOLN. 100 MEQ IV ×2 (05:53→22:18)
--- NOTE | 2022-02-01 06:01 | NURSING ---
phone call received from pt spouse Vilma. Update provided at this time. spouse to be contacted via cell phone if needed [phone].
[2022-02-01] MEDS: Potassium Chloride Oral Tablet 20 MEQ 40 MEQ PO ×2 (06:32→16:40)
[2022-02-01 09:11] VITALS: BP 119/74; PULSE 96; RESP 16; TEMP 36.9; O2SAT 98
--- NOTE | 2022-02-01 09:12 | PN.SURG_ITS ---
Subjective Subjective Patient seen and examined during AM rounds. She is found resting in bed with her daughter at bedside. She continues to state that she feels better. Her daughter remarks that is been quite a long time since her mother requested any pain medication. Objective Data Objective Data Vital Signs: Vital Signs Temp Pulse Resp BP Pulse Ox 98.4 F 96 16 119/74 98 02/01/22 09:11 02/01/22 09:11 02/01/22 09:11 02/01/22 09:11 02/01/22 09:11 Oxygen Delivery Method Room Air Weight: 102 lb 1.184 oz Body Mass Index (BMI) 16.9 Intake & Output: Intake and Output for Last 24 Hours 01/30/22 01/31/22 02/01/22 23:59 23:59 23:59 Intake Total 3523.75 / 3523.75 3705.34 / 4025.34 1480 / 1480 Output Total 0 / 0 Balance 3523.75 / 3523.75 3705.34 / 4025.34 1480 / 1480 Medical Nutrition Assessment Dietitian: Malnutrition Criteria Met Start: 01/30/22 12:15 Freq: Status: Active Protocol: Document 01/30/22 12:15 AG (Rec: 01/30/22 12:15 AG [id number]) Nutrition Malnutrition Evidence of Malnutrition Exists Yes Malnutrition (severe): Acute Illness/Injury Evidenced By Suboptimal Energy Intake ( Severe),Weight Loss (Severe) Clinical Problem Acute Disease or Injury Related Malnutrition Etiology severe, acute malnutrition related to GI dysfunction due to inadequate oral intake Signs/Symptoms as evidenced by unintentional wt loss of 27.9#/21% x 2 months, estimated PO intake meeting <50% of estimated energy needs > 2 months, BMI 17.0 Status Active Problem Recommendation Dietitian Recommendations/Changes Recommend advance diet as tolerated to transitional; offer ensure clear 120mL 4x/ day w/ medpass as diet is advanced although family is uncertain if pt will be accepting; consider milkshake/ fortifying foods w/ beneprotein if unaccepting of supplements given severe malnutrition; close monitoring of electrolytes when diet advanced given concerns for refeeding syndrome Lab / Micro Data Result Diagrams: 02/01/22 04:05 02/01/22 04:05 Labs: Laboratory Results - last 24 hr 02/01/22 04:05: WBC 12.2 H, RBC 3.67 L, Hgb 10.4 L, Hct 31.5 L, MCV 85.8, MCH 28.3, MCHC 33.0, RDW Std Deviation 50.1 H, RDW Coeff of Jessica 15.9 H, Plt Count 299, MPV 8.9, Immature Gran % (Auto) 3.600 H, Neut % (Auto) 82.9 H, Lymph % (Auto) 7.0 L, [place] % (Auto) 4.5, Eos % (Auto) 1.7, Baso % (Auto) 0.3, Absolute Neuts (auto) 10.1 H, Absolute Lymphs (auto) 0.86, Nucleated RBC % 0 02/01/22 04:05: Sodium 136, Potassium 2.9 L, Chloride 108 H, Carbon Dioxide 22.0 , Anion Gap 6, BUN 2 L, Creatinine 0.39 L, Estim Creat Clear Calc 38.81, Est GFR (MDRD) Af Amer 210, Est GFR (MDRD) Non-Af 173, BUN/Creatinine Ratio 5.1 L, Glucose 104, Calcium 7.1 L Physical Exam Const no apparent distress Resp normal respiratory effort GI GI Narrative: Nondistended, only mildly tender to palpation in the left lower quadrant Assessment & Plan Assessment/Plan (1) Abscess of sigmoid colon due to diverticulitis: PLAN: This is a 71-year-old female with advanced Alzheimer's dementia who presents with complicated diverticulitis. She appears to have at least a 2.5 cm pericolonic abscess located rather deeply in the pelvis. Based on size and d ifficult location, I do not think this is amenable to percutaneous drainage. Patient remains comfortable at rest and daughter confirms that patient has not required pain medication in some time. Further improved today with only mild discomfort left lower quadrant. However, patient's CBC demonstrates an increase in her white blood cell count. Therefore, I find it reasonable to increase her diet to a soft, low residue diet but would hold off of transitioning from IV to p.o. antibiotic coverage and reorder CBC for a.m. I held further discussions with patient's daughter regarding management of her condition and she reiterates that family does not want to pursue any aggressive means. She will visit with her sister and father as to whether or not they are interested in pursuing work- up for possible occult malignancy. Charges/Coding Visit Charges Inpatient E&M: 62563 Subs Hosp L2
[2022-02-01] MEDS: Ensure Clear 120 ML Liquid PO ×3 (09:17→16:40)
[2022-02-01] MEDS: Ciprofloxacin 400 MG/200 ML BAG 200 MG IV (10:33)
--- NOTE | 2022-02-01 12:11 | CASEMGMT ---
SW was informed patient's daughter Landon, who is patient's POA is here and would like to talk with SW about Hospice. SW and physician went to patient's room and met with patient's 2 daughters Cristina and Landon. SW introduced self. Physician had lengthy conversation discussing patient's case. It was decided that SW will make a referral to Hospice so they can meet with family. SW spoke with patient's daughters and confirmed phone number for Landon patient's Healthcare Power of Educational Administration Teacher. SW explained how the process works. Both were appreciative of physician and SW's time. SW called [facility] and spoke with Patricio regarding referral. SW also faxed referral information. Stacia Villasenor LINE DIRECTOR PRAVEEN
[2022-02-01 12:25] LABS: Potassium 3.5 mmol/L (3.5-5.1)
[2022-02-01] MEDS: Acetaminophen 500 MG Tablet 1000 MG PO ×2 (12:37→22:12)
[2022-02-01] MEDS: Ondansetron 4 MG/2 ML Vial IV (13:35)
--- NOTE | 2022-02-01 13:50 | PN.HOSP_ITS ---
Documented by User: Robert DUBON 02/01/22 13:58 Subjective Subjective Patient is a 71-year-old female resting in a chair, alert and orient x3. Patient reports improvement in her N/V/D, still does report abdominal pain to palpation. Was able to tolerate advancement to clear liquid diet. Objective Data Objective Data Vital Signs: Vital Signs Temp Pulse Resp BP Pulse Ox 98.4 F 96 16 119/74 98 02/01/22 09:11 02/01/22 09:11 02/01/22 09:11 02/01/22 09:11 02/01/22 09:11 Oxygen Delivery Method Room Air Weight: 102 lb 1.184 oz Body Mass Index (BMI) 16.9 Intake & Output: Intake and Output for Last 24 Hours 01/30/22 01/31/22 02/01/22 23:59 23:59 23:59 Intake Total 3523.75 / 3523.75 3705.34 / 4025.34 2146.67 / 2146.67 Output Total 0 / 0 Balance 3523.75 / 3523.75 3705.34 / 4025.34 2146.67 / 2146.67 Medical Nutrition Assessment Dietitian: Malnutrition Criteria Met Start: 01/30/22 12:15 Freq: Status: Active Protocol: Document 01/30/22 12:15 AG (Rec: 01/30/22 12:15 [id number]) Nutrition Malnutrition Evidence of Malnutrition Exists Yes Malnutrition (severe): Acute Illness/Injury Evidenced By Suboptimal Energy Intake ( Severe),Weight Loss (Severe) Clinical Problem Acute Disease or Injury Related Malnutrition Etiology severe, acute malnutrition related to GI dysfunction due to inadequate oral intake Signs/Symptoms as evidenced by unintentional wt loss of 27.9#/21% x 2 months, estimated PO intake meeting <50% of estimated energy needs > 2 months, BMI 17.0 Status Active Problem Recommendation Dietitian Recommendations/Changes Recommend advance diet as tolerated to transitional; offer ensure clear 120mL 4x/ day w/ medpass as diet is advanced although family is uncertain if pt will be accepting; consider milkshake/ fortifying foods w/ beneprotein if unaccepting of supplements given severe malnutrition; close monitoring of electrolytes when diet advanced given concerns for refeeding syndrome Lab / Micro Data Result Diagrams: 02/01/22 04:05 02/01/22 11:57 Labs: Laboratory Results - last 24 hr 02/01/22 04:05: WBC 12.2 H, RBC 3.67 L, Hgb 10.4 L, Hct 31.5 L, MCV 85.8, MCH 28.3, MCHC 33.0, RDW Std Deviation 50.1 H, RDW Coeff of Jessica 15.9 H, Plt Count 299, MPV 8.9, Immature Gran % (Auto) 3.600 H, Neut % (Auto) 82.9 H, Lymph % (Auto) 7.0 L, [place] % (Auto) 4.5, Eos % (Auto) 1.7, Baso % (Auto) 0.3, Absolute Neuts (auto) 10.1 H, Absolute Lymphs (auto) 0.86, Nucleated RBC % 0 02/01/22 04:05: Sodium 136, Potassium 2.9 L, Chloride 108 H, Carbon Dioxide 22.0, Anion Gap 6, BUN 2 L, Creatinine 0.39 L, Estim Creat Clear Calc 38.81, Est GFR (MDRD) Af Amer 210, Est GFR (MDRD) Non-Af 173, BUN/Creatinine Ratio 5.1 L, Glucose 104, Calcium 7.1 L 02/01/22 11:57: Potassium 3.5 Physical Exam Const alert, oriented x3 and no apparent distress HEENT head/scalp atraumatic and moist oral mucous membranes Head and Scalp: normocephalic Eyes PERRL, EOMs intact bilaterally and conjunctivae normal Neck no lymphadenopathy, supple and no JVD Resp normal respiratory effort, no retractions and no use of accessory muscles Cardio regular rate, regular rhythm and no JVD GI Auscultation: hyperactive bowel sounds Palpation: tender LLQ and RLQ and guarding Extremity normal to inspection, full ROM and no clubbing, cyanosis or edema Skin no rashes or lesions noted, no wounds and skin turgor normal Neuro CN's II-XII intact bilaterally Psych affect normal Assessment & Plan Assessment/Plan (1) Abscess of sigmoid colon due to diverticulitis: PLAN: Day 2 Discharge planning: Current plan is for patient to discharge home when medically ready. 1) diverticulitis of the sigmoid colon with abscess General surgery following, no plans for invasive management at this time, will continue IV fluids with Cipro and Flagyl. Possible on 02/02. 2) hypokalemia Potassium was 2.9, replaced updated calcium was 3.5. Continue with IV supplem entation, we will continue to monitor. 3) Alzheimer's dementia Continue memantine. 4) depression/anxiety Continue paroxetine and quetiapine. 5) FUNMILAYO Continue CPAP. DVT prophylaxis - SCDs Patient seen by Robert Best PA-C, under the supervision of Dr. Starkey. Time spent on patient care: 9 minutes. Documented by User: Dr. Yessica Starkey MD 02/01/22 17:08 Objective Data Lab / Micro Data Result Diagrams: 02/01/22 04:05 02/01/22 11:57 Charges/Coding Addendum Addendum: This patient was seen in conjunction with JAGDISH García. I have independently interviewed and examined the patient and reviewed pertinent historical, laboratory, and other data. I have reviewed her note and concur with her documentation Patient was seen and examined. Her daughter was at the bedside. No acute events overnight. She stated that her pain is fairly stable. She has pain on moving her bowels. Physical Exam: Gen: Comfortable, not pale, not jaundiced CVS:HS I +II, regular, no murmurs RESP: Diminished at lung bases GI: BS present and normal, soft, nontender, no palpable organs EXT:No edema ASSESSMENT: 1. Acute sigmoid colon abscess secondary to diverticulitis 2. Hypokalemia, resolved 3. Alzheimer's dementia 4. Anxiety/depression 5. FUNMILAYO on CPAP 6. Severe protein calore malnutrition, due to inadequate p.o. intake and unintentional weight loss Plan: Continue to advance diet to transitional diet, Supplements per nutritions Continue on IV antibiotics Repeat blood work Possible DC in am Time spent coordinating patient's care, discussing with subspecialty and nursin minutes Visit Charges Inpatient E&M: 53918 Subs Hosp L2
[2022-02-01 14:36] VITALS: BP 122/74; PULSE 91; RESP 16; TEMP 36.7; O2SAT 97
[2022-02-01 16:42] VITALS: BP 126/73; PULSE 80; RESP 16; TEMP 36.8; O2SAT 92
[2022-02-01 21:41] VITALS: BP 134/65; PULSE 77; RESP 18; TEMP 37; O2SAT 99
[2022-02-02] MEDS: Ciprofloxacin 400 MG/200 ML BAG 200 MG IV (00:03)
[2022-02-02 03:38] VITALS: BP 135/86; PULSE 89; RESP 18; TEMP 36.9; O2SAT 97
[2022-02-02] MEDS: oxyCODONE 5 MG Tablet 2.5 MG PO ×2 (03:46→09:40)
[2022-02-02] MEDS: Ondansetron 4 MG/2 ML Vial IV (04:18)
[2022-02-02 04:51] LABS: Absolute Neutrophil Count 9.3 X10^3/uL (2.0-7.7); Basophil# 0.04 X10^3/uL; Basophil% 0.4 % (0-1); Eosinophil# 0.25 X10^3/uL; Eosinophils% 2.3 % (0-5); Hematocrit 31.7 % (37-47); Hemoglobin 10.5 g/dL (12.0-15.0); Lymphocyte % 7.3 % (19-41); Mean Corp Hgb Conc 33.1 g/dL (32-36); Mean Corpuscular Hgb 28.1 pg (27.0-32.0); Mean Corpuscular Volume 84.8 fL (81-99); Mean Platelet Vol. 8.7 fl (6.2-12.0); Monocyte# 0.45 X10^3/uL; Monocyte% 4.1 % (0-10); NRBC Flagged by Analyzer 0 % (0-5); Neutrophil # 9.27 X10^3/uL (2.7-7.7); Neutrophil % 84.1 % (47-70); Platelet Count 286 K/mm3 (150-450); RBC Distribution Width CV 15.6 % (11.6-14.6); RBC Distribution Width SD 48.1 fl (35.1-43.9); Red Blood Count 3.74 M/mm3 (4.2-5.4)
[2022-02-02 05:13] LABS: Anion Gap 6 (5-15); BUN 1 mg/dL (7-18); BUN/Creat Ratio 3.7 RATIO (10-20); Chloride 113 mmol/L (98-107); Creatinine, Serum 0.27 mg/dL (0.55-1.02); EST Glomerular Filtration Rate 265 mL/min (>60); Est Glom Filt Rate - Afr Amer 320 mL/min (>60); Estimated Creatinine Clearance 38.81 ml/min; Glucose 106 mg/dL (74-106); Potassium 3.2 mmol/L (3.5-5.1); Sodium Level 140 mmol/L (136-145)
[2022-02-02] MEDS: Acetaminophen 500 MG Tablet 1000 MG PO ×2 (05:49→14:03)
[2022-02-02] MEDS: metroNIDAZOLE 500 MG/100 ML BAG 100 MG IV (05:49)
--- NOTE | 2022-02-02 08:40 | PCM.PN.SRG ---
Subjective Subjective Patient seen and examined at bedside. Her daughter remains at bedside with her. Daughter states that her mother has eaten somewhat better over the last day. However, she confirms nursing note that she provided her mother with a small bite of pudding and approximately 1 minute later had an episode of vomiting. For her part, Mrs. Nobles reports that her abdominal pain is better. Objective Data Objective Data Vital Signs: Vital Signs Temp Pulse Resp BP Pulse Ox 98.5 F 89 18 135/86 H 97 02/02/22 03:38 02/02/22 03:38 02/02/22 03:38 02/02/22 03:38 02/02/22 03:38 Oxygen Delivery Method Room Air Weight: 102 lb 1.184 oz Body Mass Index (BMI) 16.9 Intake & Output: Intake and Output for Last 24 Hours 01/31/22 02/01/22 02/02/22 23:59 23:59 23:59 Intake Total 3705.34 / 4025.34 4520.00 / 4520.00 420 / 420 Balance 3705.34 / 4025.34 4520.00 / 4520.00 420 / 420 Medical Nutrition Assessment Dietitian: Malnutrition Criteria Met Start: 01/30/22 12:15 Freq: Status: Active Protocol: Document 01/30/22 12:15 AG (Rec: 01/30/22 12:15 AG [id number]) Nutrition Malnutrition Evidence of Malnutrition Exists Yes Malnutrition (severe): Acute Illness/Injury Evidenced By Suboptimal Energy Intake ( Severe),Weight Loss (Severe) Clinical Problem Acute Disease or Injury Related Malnutrition Etiology severe, acute malnutrition related to GI dysfunction due to inadequate oral intake Signs/Symptoms as evidenced by unintentional wt loss of 27.9#/21% x 2 months, estimated PO intake meeting <50% of estimated energy needs > 2 months, BMI 17.0 Status Active Problem Recommendation Dietitian Recommendations/Changes Recommend advance diet as tolerated to transitional; offer ensure clear 120mL 4x/ day w/ medpass as diet is advanced although family is uncertain if pt will be accepting; consider milkshake/ fortifying foods w/ beneprotein if unaccepting of supplements given severe malnutrition; close monitoring of electrolytes when diet advanced given concerns for refeeding syndrome Lab / Micro Data Result Diagrams: 02/02/22 04:43 02/02/22 04:43 Labs: Laboratory Results - last 24 hr 02/01/22 11:57: Potassium 3.5 02/02/22 04:43: WBC 11.0, RBC 3.74 L, Hgb 10.5 L, Hct 31.7 L, MCV 84.8, MCH 28.1, MCHC 33.1, RDW Std Deviation 48.1 H, RDW Coeff of Jessica 15.6 H, Plt Count 286, MPV 8.7, Immature Gran % (Auto) 1.800 H, Neut % (Auto) 84.1 H, Lymph % (Auto) 7.3 L, [place] % (Auto) 4.1, Eos % (Auto) 2.3, Baso % (Auto) 0.4, Absolute Neuts (auto) 9.3 H, Absolute Lymphs (auto) 0.80 L, Nucleated RBC % 0 02/02/22 04:43: Sodium 140, Potassium 3.2 L, Chloride 113 H, Carbon Dioxide 21.0, Anion Gap 6, BUN 1 L, Creatinine 0.27 L, Estim Creat Clear Calc 38.81, Est GFR (MDRD) Af Amer 320, Est GFR (MDRD) Non-Af 265, BUN/Creatinine Ratio 3.7 L, Glucose 106, Calcium 7.0 L Physical Exam Const no apparent distress Resp normal respiratory effort GI GI Narrative: Nondistended, soft, focally tender to palpation left lower quadrant (suprapubic region specifically) Assessment & Plan Assessment/Plan (1) Abscess of sigmoid colon due to diverticulitis: PLAN: This is a 71-year-old female with advanced Alzheimer's dementia who presents with complicated diverticulitis. She appears to have at least a 2.5 cm pericolonic abscess located rather deeply in the pelvis. Based on size and difficult location, I do not think this is amenable to percutaneous drainage. Patient remains comfortable at rest and daughter remains at bedside suggesting further clinical improvements. Exam largely stable from yesterday with some persistent tenderness in the suprapubic portion of the left lower quadrant only. Patient's CBC demonstrated an improvement in her WBC over yesterday despite the diet increase. Therefore, we will plan to transition to oral antibiotics today. I followed up with daughter regarding my query about a colonoscopy yesterday, and she states a family would not like to pursue any further investigation and have been discussing potential hospice enrollment with the hospitalist service. Per Dr. Starkey, dietary has been engaged and will plan to perform a calorie count. If oral intake is satisfactory, patient could be considered eligible for discharge later today and I would like to follow-up with patient in 1 week post discharge to assess her clinical progress. Lauro Moraels MD General Surgery Endocrine Surgery Pager: [facility] [address] [place] [address], [address] [place] [address] Office: [phone] Charges/Coding Visit Charges Inpatient E&M: 77459 Subs Hosp L2
[2022-02-02] MEDS: Potassium Chloride Oral Tablet 20 MEQ 60 MEQ PO (09:12)
[2022-02-02] MEDS: Ensure Clear 120 ML Liquid PO ×2 (09:13→12:18)
[2022-02-02] MEDS: KCL 20MEQ in 0.9% NS 20 MEQ/1,000 ML IV.SOLN. 100 MEQ IV (09:13)
[2022-02-02] MEDS: Ciprofloxacin 500 MG Tablet PO (09:13)
[2022-02-02] MEDS: Potassium Chloride Oral Tablet 20 MEQ 40 MEQ PO (09:13)
[2022-02-02 09:20] VITALS: BP 118/72; PULSE 86; RESP 16; TEMP 37; O2SAT 97
--- NOTE | 2022-02-02 11:03 | PCM.DC ---
Discharge Instructions Diet Discharge Diet: Light diet - advance as tolerated Activity Discharge Activity: Return to Normal Activity Weight Bearing Status: Weight bearing as tolerated Dressing / Incision Call your doctor if you observe: Fever of 101 or Higher, Numbness or Tingling, Shortness of breath, Dizziness, Chest pain, Increased palpitations (irregular heartbeat) and Calf discomfort Follow Up Care Please Follow Up With: Primary care provider When: Within the next two weeks. Test Results: Test results from this visit will be discussed in further detail at your follow-up appointment, if applicable. Discharge Plan Admission Admit Date/Time: 01/30/22 02:52 Primary Reason for Your Visit: Diverticulitis Attending Provider: Yessica Starkey Primary Care Provider: Austin Sawant Consulting Providers: Lauro Morales Discharge Orders/Prescriptions Prescriptions: New metronidazole 500 mg Tablet 500 mg PO TID Qty: 21 RF: 0 ciprofloxacin HCl 500 mg Tablet 500 mg PO BID Qty: 14 RF: 0 potassium chloride 20 mEq tablet,ER particles/crystals 20 meq PO DAILY Qty: 3 RF: 0 Continued potassium chloride 10 mEq tablet extended release 20 meq PO DAILY RF: 0 paroxetine HCl 20 mg tablet 20 mg PO DAILY RF: 0 memantine 5 mg tablet 5 mg DAILY RF: 0 Held quetiapine 25 mg tablet 12.5 mg BID RF: 0 Hold Instructions: Resume on 02/09/22. Hold while taking Ciprofloxacin due to possiblilty of heart arrythmias. Referrals / Follow Up: Austin Sawant DO [Primary Care Provider] - Within 2 Weeks Lauro Morales MD [STAFF PHYSICIAN] - Within 1 Week Disposition Disposition (needs filled in before D/C Order can be placed): Home, Self Care
[2022-02-02] MEDS: Potassium Chloride 10mEq/100mL 10 MEQ/100 ML IV.SOLN. 100 MEQ IV BOLUS ×4 (12:18→16:49)
[2022-02-02] MEDS: metroNIDAZOLE 500 MG Tablet PO (12:20)
--- NOTE | 2022-02-02 14:21 | CASEMGMT ---
Addendum entered by Kath Og 02/02/22 14:31: SW called hospice to confirm the plan is home w/hospice today, spoke w/Francisco. He confirmed they are working on getting everything arranged now so pt can go home w/hospice today. SUZAN Elam Original Note: Social Work SW spoke w/pt's daughter at the bedside for clarification. She states plan is for pt to go home today on hospice, she is to call hospice once they are leaving and hospice is to meet them at home. She states plan is to finish antibiotics, but plan is home w/hospice today. She asked about transportation home, if hospice provides transport home. SW explained no, but we can set up an ambulance to take pt home if needed. Daughter states they will be able to transport pt home. SW placed a green sheet on the chart for staff here to also notify hospice and fax discharge instructions once pt is ready to go home. SUZAN Elam
--- NOTE | 2022-02-02 14:25 | PCM.DC.SUM ---
Documented by User: Robert DUBON 02/02/22 14:31 Providers Date of Admission: 01/30/22 Date of Discharge: 02/02/22 Primary Care Physician: Dr. Austin Sawant, Consultations 01/30/22 03:57 Consult: General Surgery Routine Consulting Provider: Lauro Morales Reason for Consult: Acute diverticulitis EMERGENT Consult: No MD Notified: Yes Date Notified: 01/30/22 Time Notified: 07:22 Method of Notification: Verbal Method of Consult:: In-Person Reason For Visit: ACUTE DIVERTICULITIS Diagnosis Discharge Diagnosis (1) Abscess of sigmoid colon due to diverticulitis: Status: Acute Code(s): K57.20 - Diverticulitis of large intestine with perforation and abscess without bleeding Medications at Discharge Home Medications memantine 5 mg DAILY 01/30/22 paroxetine HCl 20 mg PO DAILY 01/30/22 potassium chloride 20 meq PO DAILY 01/30/22 quetiapine 12.5 mg BID 01/30/22 acetaminophen 1,000 mg PO Q8H PRN PRN #6 tab 02/02/22 ciprofloxacin HCl 500 mg PO BID #14 tab 02/02/22 metronidazole 500 mg PO TID #21 tab 02/02/22 ondansetron 4 mg PO Q8H #6 tab 02/02/22 oxycodone 2.5 mg PO Q8H PRN 2 Days #3 tab 02/02/22 potassium chloride 20 meq PO DAILY #3 tab 02/02/22 Hospital Course Summary of Care Provided Minutes Spent on Discharge: 20 Hospital Course: Patient is a 71-year-old female who was admitted to [facility] on 01/30/2022 for evaluation and management of diverticulitis of the sigmoid colon with abscess. Hospital course and management as below. 1) diverticulitis of the sigmoid colon with abscess Managed on IV Cipro and Flagyl throughout admission. Was evaluated by general surgery throughout admission who did not feel that patient was ideal for surgery given size and location, as well as patient/family wishes. Advancement of patient's diet was tenuous throughout admission, although on day of discharge patient was able to tolerate certain foods. Advised a light diet on discharge and for patient to advance as tolerated. Patient will continue ciprofloxacin and Flagyl for another 7 days. 2) hypokalemia Potassium was 3.2 on day of discharge, replaced. Patient was provided p.o. potassium supplementation on discharge. 3) Alzheimer's dementia Continue memantine. Hospice consult ordered while patient was admitted, will follow as an outpatient. 4) depression/anxiety Continue paroxetine and quetiapine. 5) FUNMILAYO Continue CPAP. Patient seen by Robert Best PA-C, under the supervision of Dr. Starkey. Time spent on patient care: 20 minutes. Physical Exam Narrative Patient is a 71-year-old female resting in bed, alert and orient x3. Patient reports improvement in her abdominal pain and N/V/D. Denies development of any new symptoms overnight. Const alert, oriented x3 and no apparent distress HEENT normocephalic, head/scalp atraumatic and hearing grossly normal bilaterally Eyes PERRL, EOMs intact bilaterally and conjunctivae normal Neck no lymphadenopathy, supple and no JVD Resp normal respiratory effort, no retractions and no use of accessory muscles Cardio regular rate, regular rhythm and no JVD GI normal to inspection, nondistended, normoactive bowel sounds Extremity normal to inspection Skin no rashes or lesions noted Neuro CN's II-XII intact bilaterally Psych affect normal Medical Records Data Medical Nutrition Assessment Dietitian: Malnutrition Criteria Met Start: 01/30/22 12:15 Freq: Status: Active Protocol: Document 01/30/22 12:15 (Rec: 01/30/22 12:15 [id number]) Nutrition Malnutrition Evidence of Malnutrition Exists Yes Malnutrition (severe): Acute Illness/Injury Evidenced By Suboptimal Energy Intake ( Severe),Weight Loss (Severe) Clinical Problem Acute Disease or Injury Related Malnutrition Etiology severe, acute malnutrition related to GI dysfunction due to inadequate oral intake Signs/Symptoms as evidenced by unintentional wt loss of 27.9#/21% x 2 months, estimated PO intake meeting <50% of estimated energy needs > 2 months, BMI 17.0 Status Active Problem Recommendation Dietitian Recommendations/Changes Recommend advance diet as tolerated to transitional; offer ensure clear 120mL 4x/ day w/ medpass as diet is advanced although family is uncertain if pt will be accepting; consider milkshake/ fortifying foods w/ beneprotein if unaccepting of supplements given severe malnutrition; close monitoring of electrolytes when diet advanced given concerns for refeeding syndrome Weight / BMI Weight Weight: 102 lb 1.184 oz Body Mass Index (BMI) 16.9 ABG / Lab / Microbiology Data Result Diagrams: 02/02/22 04:43 02/02/22 04:43 Laboratory: Laboratory Results - last 24 hr 02/02/22 04:43: WBC 11.0, RBC 3.74 L, Hgb 10.5 L, Hct 31.7 L, MCV 84.8, MCH 28.1, MCHC 33.1, RDW Std Deviation 48.1 H, RDW Coeff of Jessica 15.6 H, Plt Count 286, MPV 8.7, Immature Gran % (Auto) 1.800 H, Neut % (Auto) 84.1 H, Lymph % (Auto) 7.3 L, [place] % (Auto) 4.1, Eos % (Auto) 2.3, Baso % (Auto) 0.4, Absolute Neuts (auto) 9.3 H, Absolute Lymphs (auto) 0.80 L, Nucleated RBC % 0 02/02/22 04:43: Sodium 140, Potassium 3.2 L, Chloride 113 H, Carbon Dioxide 21.0, Anion Gap 6, BUN 1 L, Creatinine 0.27 L, Estim Creat Clear Calc 38.81, Est GFR (MDRD) Af Amer 320, Est GFR (MDRD) Non-Af 265, BUN/Creatinine Ratio 3.7 L, Glucose 106, Calcium 7.0 L D/C Instructions Discharge Diet: Light diet - advance as tolerated Weight Bearing Status: Weight bearing as tolerated Call your doctor if you observe: Fever of 101 or Higher, Numbness or Tingling, Shortness of breath, Dizziness, Chest pain, Increased palpitations (irregular heartbeat) and Calf discomfort Please Follow Up With: Primary care provider When: Within the next two weeks. Meaningful Use Info Meaningful Use Diagnoses (Choose all that apply): None applicable Discharge Plan Admission Admit Date/Time: 01/30/22 02:52 Primary Reason for Your Visit: Diverticulitis Attending Provider: Yessica Starkey Primary Care Provider: Austin Sawant Consulting Providers: Lauro Morales Discharge Orders/Prescriptions Prescriptions: New metronidazole 500 mg Tablet 500 mg PO TID Qty: 21 RF: 0 ciprofloxacin HCl 500 mg Tablet 500 mg PO BID Qty: 14 RF: 0 potassium chloride 20 mEq tablet,ER particles/crystals 20 meq PO DAILY Qty: 3 RF: 0 ondansetron 4 mg tablet,disintegrating 4 mg PO Q8H Qty: 6 RF: 0 acetaminophen 500 mg tablet 1,000 mg PO Q8H PRN PRN (Reason: pain) Qty: 6 RF: 0 oxycodone 5 mg tablet 2.5 mg PO Q8H PRN (Reason: pain) 2 Days Qty: 3 RF: 0 Continued potassium chloride 10 mEq tablet extended release 20 meq PO DAILY RF: 0 paroxetine HCl 20 mg tablet 20 mg PO DAILY RF: 0 memantine 5 mg tablet 5 mg DAILY RF: 0 Held quetiapine 25 mg tablet 12.5 mg BID RF: 0 Hold Instructions: Resume on 02/09/22. Hold while taking Ciprofloxacin due to possiblilty of heart arrythmias. Referrals / Follow Up: Austin Sawant DO [Primary Care Provider] - Within 2 Weeks Lauro Morales MD [STAFF PHYSICIAN] - Within 1 Week Disposition Disposition (needs filled in before D/C Order can be placed): Home, Self Care Documented by User: Dr. Yessica Starkey MD 02/02/22 14:44 Providers Date of Admission: 01/30/22 Reason For Visit: ACUTE DIVERTICULITIS Medications at Discharge Home Medications memantine 5 mg DAILY 01/30/22 paroxetine HCl 20 mg PO DAILY 01/30/22 potassium chloride 20 meq PO DAILY 01/30/22 quetiapine 12.5 mg BID 01/30/22 acetaminophen 1,000 mg PO Q8H PRN PRN #6 tab 02/02/22 ciprofloxacin HCl 500 mg PO BID #14 tab 02/02/22 metronidazole 500 mg PO TID #21 tab 02/02/22 ondansetron 4 mg PO Q8H #6 tab 02/02/22 oxycodone 2.5 mg PO Q8H PRN 2 Days #3 tab 02/02/22 potassium chloride 20 meq PO DAILY #3 tab 02/02/22 ABG / Lab / Microbiology Data Result Diagrams: 02/02/22 04:43 02/02/22 04:43 Discharge Plan Admission Admit Date/Time: 01/30/22 02:52 Primary Reason for Your Visit: Diverticulitis Attending Provider: Yessica Starkey Primary Care Provider: Austin Sawant Consulting Providers: Lauro Morales Discharge Orders/Prescriptions Prescriptions: New metronidazole 500 mg Tablet 500 mg PO TID Qty: 21 RF: 0 ciprofloxacin HCl 500 mg Tablet 500 mg PO BID Qty: 14 RF: 0 potassium chloride 20 mEq tablet,ER particles/crystals 20 meq PO DAILY Qty: 3 RF: 0 ondansetron 4 mg tablet,disintegrating 4 mg PO Q8H Qty: 6 RF: 0 acetaminophen 500 mg tablet 1,000 mg PO Q8H PRN PRN (Reason: pain) Qty: 6 RF: 0 oxycodone 5 mg tablet 2.5 mg PO Q8H PRN (Reason: pain) 2 Days Qty: 3 RF: 0 Continued potassium chloride 10 mEq tablet extended release 20 meq PO DAILY RF: 0 paroxetine HCl 20 mg tablet 20 mg PO DAILY RF: 0 memantine 5 mg tablet 5 mg DAILY RF: 0 Held quetiapine 25 mg tablet 12.5 mg BID RF: 0 Hold Instructions: Resume on 02/09/22. Hold while taking Ciprofloxacin due to possiblilty of heart arrythmias. Referrals / Follow Up: Austin Sawant DO [Primary Care Provider] - Within 2 Weeks Lauro Morales MD [STAFF PHYSICIAN] - Within 1 Week Disposition Disposition (needs filled in before D/C Order can be placed): Home, Self Care Charges/Coding Addendum Addendum: This patient was seen in conjunction with JAGDISH García. I have independently interviewed and examined the patient and reviewed pertinent historical, laboratory, and other data. I have reviewed her note and concur with her documentation 71-year-old female with past medical history of Alzheimer's dementia who comes in with abdominal pain ongoing for about 2 months. Pain is mostly in the lower part of her abdomen. Patient was found on CAT scan to have abscess and perforation of sigmoid colon due to diverticulitis. General surgery was consulted and felt that patient was not amendable to surgical intervention nor a percutaneous drainage. Patient was admitted to the PCU and managed on IV antibiotics. She also had hypokalemia that resolved with IV fluids. Patient was monitored during this hospital stay. She was put on scheduled Tylenol for pain as well as as needed oxycodone. Patient was seen and examined. Her daughter was at the bedside. No acute events overnight. She stated that her pain is fairly stable. She had multiple bowel movement during this time. Met with the patient's daughters and POA at the bedside. They were concerned about her mother's poor p.o. intake and requested hospice. I discussed that we will could treat pelvic abscess with antibiotics and if she does not improve then she could be transitioned to hospice care. Discussed with general surgery, patient will be discharged on oral Cipro and Flagyl for 1 week making a total of 10 days. Patient to follow-up with Dr. Morales in a week. Patient will also be followed up with hospice at discharge peripherally. On the day of discharge, patient was seen and examined. Her was at the bedside. She was enthusiastic to eat some yogurt. She did not like the applesauce and the other diet she was given. Her diet was liberalized. Physical Exam: Gen: Comfortable, not pale, not jaundiced CVS:HS I +II, regular, no murmurs RESP: Diminished at lung bases GI: BS present and normal, soft, nontender, no palpable organs EXT:No edema Time spent coordinating patient's care, discussing with subspecialty and nursin minutes Visit Charges Inpatient E&M: 26149 Disch Hosp
[2022-02-02 15:15] VITALS: BP 114/74; PULSE 85; RESP 16; TEMP 37; O2SAT 98
[2022-02-02 18:19] VITALS: BP 126/72; PULSE 75; RESP 16; O2SAT 98
== END 2022-02-02 18:17 | disposition home or self-care (01) | DRG 391 ==
LOC: ED 01-30 02:56 → PCU 01-30 03:04
PROVIDERS: Nurse Practitioner Family; Physician Assistant; Admitting Provider Hospitalist; Emergency Provider Emergency Medicine; PCP Student in an Organized Health Care Education/Training Program; Visit Provider Internal Medicine
DX: K57.20 Diverticulitis of large intestine with perforation and abscess without bleeding (principal); E43 Unspecified severe protein-calorie malnutrition; Z68.1 Body mass index [BMI] 19.9 or less, adult; F02.80 Dementia in other diseases classified elsewhere, unspecified severity, without behavioral disturbance, psychotic disturbance, mood disturbance, and anxiety; G30.9 Alzheimer's disease, unspecified; E87.6 Hypokalemia; F41.9 Anxiety disorder, unspecified; G47.33 Obstructive sleep apnea (adult) (pediatric); F32.A Depression, unspecified; Z99.89 Dependence on other enabling machines and devices; Z90.710 Acquired absence of both cervix and uterus; Z23 Encounter for immunization
CPT/HCPCS: 36415; 74177; 80048; 80053; 83690; 83735; 84132; 85025; 90471; 97110; 97116; 97162; 97166; 97530; 97535; 97802; 99285; J7030; J7040; J7050; Q9967; A4216; J0744; J2405